=== PATIENT | male | born 1935 | race Caucasian/White ===

== ENCOUNTER 2022-02-16 14:42 | Inpatient (IN) | payer OTHER, MEDICARE ==
[~2022-02-16] VITALS: Ht 172.7 cm; Wt 83.0 kg
[2022-02-16 16:26] LABS: Hematocrit 45.6 % (37.0-53.0); Hemoglobin 15.4 g/dL (13.5-17.5)
[2022-02-16 16:33] LABS: Anti-Xa UFH, PHA Monitoring 0.69 IU/mL; Mean Platelet Volume 10.7 fL (9.1-12.4); Platelet Count 199 K/mm3 (150-400); Prothrombin Time Results 10.5 Sec (9.7-11.5)
[2022-02-16 16:57] LABS: Bun/Creatinine Ratio 21.6 (12.0-20.0); Calcium, Blood 10.1 mg/dL (8.5-10.1); Creatinine, Blood 0.93 mg/dL (0.60-1.20); Potassium, Blood 4.1 mmol/L (3.5-5.5); Thyroid Stimulating Hormone 1.83 uIU/mL (0.360-4.800)
--- NOTE | 2022-02-16 18:24 | NUR ---
END OF SHIFT SUMMARY: PATIENT IS ALERT AND ORIENTED, DENIES CHEST PAIN/PRESSURE OR SOB. PATIENT TO BE NPO AT MIDNIGHT, PATIENT IS ON 2L SPO2> 96%, WILL ATTEMPT RA BEFORE SHIFT CHANGE, WITH SPO2 MONITORING. LUNG SOUNDS IMPROVED FROM REPORT GIVEN BY [facility] IN [place]. PATIENT HAS BEEN PLEASANT COOPERATIVE WITH CARE. NO ACUTE SIGNS OF DISTRESS. BLOOD PRESSURE MILD ELEVATED, PROVIDER AWARE NO CONCERNS FROM THIS RN AT THIS TIME.
--- NOTE | 2022-02-17 06:08 | NUR ---
PT AWAKE FREQUENLTY THROUGHOUT SHIFT, CHIEF COMPLAINT HAS BEEN FEELING OF NEED TO VOID RELATED TO GALLO CATHETER PRESENCE. 600 ML URINE OUTPUT THIS SHIFT, BLADDER SCAN DONE AND REVEALS 15 ML. SATS HIGH 90S WITH OXYGEN VIA NASAL CANNULA AT 2 L/MIN, DECREASED TO 1 L/MIN AND PT HAS INTERMITTENTLY C/O FEELING MILD SHORTNESS OF BREATH WITH DECREASE IN OXYGEN FLOW, RETURNED TO 2 L/MIN THIS AM FOLLOWING TYLENOL ADMINISTRATION, WILL CONT TO MONITOR. DISCUSSED PT'S ABILITY TO MOVE SELF EARLY THIS SHIFT AND HE DEMONSTRATED THAT HE IS ABLE TO TURN SELF WELL IND, HAS TURNED SELF THROUGHOUT NOC WELL SCOOTING SELF UP IN BED IND. MAINTAINS SINUS RHYTHM, OCCASIONAL PVCS, PRESSURES MAINTAIN STABLE. PLAN IS FOR ANGIO TODAY.
[2022-02-17] MEDS ORDERED: LEVSOD25 PO (09:25)
[2022-02-17] MEDS ORDERED: METO25 PO (09:25)
[2022-02-17] MEDS ORDERED: Lovastatin20 MG PO (09:26)
--- NOTE | 2022-02-17 13:18 | NUR ---
UPDATE PT A&O X4. VSS. SPO2 > 92% ON 2L NC TITRATED TO 1L NC. PT REPORTS RA @ BASELINE. TELEMETRY SHOWING SR, HR 70s-80s. ECHO DONE IN THIS AM. HC W/ CALL STATING PT OKAY TO EAT TODAY & PLAN TO DO ANGIO TOMORROW @ 0900. PT DENIES CP. HEPARIN GTT CONTINUES TO INFUSE PER ORDERS. GALLO CATH PATENT & DRAINING TEA COLOR URINE. PT 1 PERSON ASSIST OOB. PT W/ WEAK AMBULATION.
--- NOTE | 2022-02-17 13:30 | NUR ---
Echocardiogram using 0.50ml of Definity contrast performed.
--- NOTE | 2022-02-17 18:15 | NUR ---
END OF SHIFT NOTE PT CONTINUES TO BE A&O X4. VSS. SPO2 > 92% ON 2L NC TITRATED TO 1L NC THEN RM. PT ANXIOUS, C/O "SOB" ON RA THOUGH SPO2 97% ON RA. 1L NC RE-APPLIED W/ PT THEN CALM. TELEMETRY SHOWING SR, HR 70s-80s. GALLO CATH PATENT & DRAINING TEA COLOR URINE. PT DENYING CP THIS SHIFT. HEPARIN GTT INFUSING PER ORDERS. PT TO BE NPO AFTER MIDNIGHT FOR ANGIO IN AM.
--- NOTE | 2022-02-18 00:15 | NUR ---
UPDATE PT STATED HIS WISHES TO LEAVE AMA. PT STATED HE WAS FRUSTRATED THAT HE DID NOT RECEIVE THE ANGIO ON 02/17/22 AND THAT HE "WOULD LIKE TO JUST GO HOME". PT PT INFORMED ABOUT POTENTIAL MEDICAL CONSEQUENCES TO HIS HEALTH IF HE LEAVES AMA. CHARGE NURSE VIOLETTE ALSO CAME AND SPOKE WITH THE PT ABOUT GOING AMA. AFTER DICUSSION WITH CHARGE NURSE, PT CHOSE TO STAY FOR THE ANGIO ON 02/18/22, BUT WOULD LIKE SOMETHING TO HIM SLEEP. MD SANCHEZFIED AND PT MEDICATED PER EMAR. MICHELLE, JO ANN
[2022-02-18 05:01] LABS: Hematocrit 44.3 % (37.0-53.0); Hemoglobin 14.6 g/dL (13.5-17.5); Mean Platelet Volume 10.9 fL (9.1-12.4); Platelet Count 172 K/mm3 (150-400)
--- NOTE | 2022-02-18 05:03 | NUR ---
SHIFT SUMMARY PT IS A/Ox4 AND FOLLOWS DIRECTIONS GIVEN BY STAFF. PT HAS NOT REPORTED ANY NEW ONSET OF CP OR PRESSURE T/O THE SHIFT. PT MAINTAINS SPO2 >95% ON RA WITH NO SOB OR DYSPNEA REPORTED AT REST. BP AND HR HAVE BEEN STABLE T/O THE SHIFT. HEPARIN RUNNING T/O THE SHIFT ORDERED PER EMAR. GALLO CATH IN PLACE DRAINING TEA/REDISH COLORED URINE, CATH PATENT AND DRAINING TO GRAVITY. AROUND 0005 THIS AM, PT EXRESSED INTENTIONS TO GO AMA, BUT LATER CHANGED HIS MIND AND CHOSE TO STAY. SEE THIS RN'S UPDAE NOTE FOR MORE DETAILS. PT UP TO CHAIR FOR COUPLE OF HOURS, THEN BACK TO BED TO SLEEP. VSS, NADN T/O THE SHIFT
--- NOTE | 2022-02-18 09:16 | NUR ---
GONE TO [employer] PT A&O X4. VSS. SPO2 > 92% ON RA. MONITOR SHOWING SR, HR 80s. PT DENYING CP/DISCOMFORT. CARDIZEM GTT INFUSING PER ORDERS UP UNTIL HC STAFF ARRIVAL TO TAKE PT TO [employer] FOR ANGIO. PT DEPARTED UNIT @ APPROX 0915 BY BED, ACCOMPANIED BY PT FAMILY.
--- NOTE | 2022-02-18 11:20 | NUR ---
RETURN FROM [facility] PT BACK TO [facility]- @ APPROX 1115. PT LAYING FLAT IN BED W/ L FEM ACCESS SITE W/ DRESSING C/D/I. SITE WNL W/ NO BLEEDING & NO HEMATOMA. W/ ORDER FOR PT BEDREST X6H. PT VSS. SPO2 > 92% ON RA. MONITOR SHOWING SR, HR 80s.
--- NOTE | 2022-02-18 18:08 | NUR ---
END OF SHIFT NOTE PT A&O X4 PRIOR TO ANGIO TODAY. PT DROWSY UPON RETURN FROM MANAGER ERP. PT THEN CONFUSED WHEN WAKING UP & CONVERSATING W/ STAFF. PT PULLING AT & REMOVING TELEMETRY & GOWN & REQUIRING FREQUENT REMINDERS TO REMAIN FLAT DURING POST ANGIO RECOVERY. PT CONFUSED, STATING LOCATION "IN MY BEDROOM @ HOME. MY IS IN THE OTHER ROOM & SHE WON'T LET ME IN." PT REORIENTED TO PLACE & REDIRECTED MULTIPLE TIMES. PT THEN W/ 2 VISITORS TO RM & PT THEN SUDDENLY ORIENTED TO PLACE, SITUATION & PROCEDURE THAT JUST OCCURRED, SHARING DETAILS W/ VISITORS IN RM. L FEM ACCESS SITE WNL W/ NO BLEEDING & NO HEMATOMA. PT VSS. SPO2 > 92% ON RA. MONITOR SHOWING SR, HR 80s. GALLO CATH DRAINING RED TINGED URINE. BED ALARM ON.
--- NOTE | 2022-02-19 05:17 | NUR ---
SHIFT SUMMARY: PT CONFUSED AND AGITATED AT BEGINNING OF SHIFT. STATED YEAR WAS "1944" AND WAS AT HOME WITH HIS . WHEN REDIRECTED, PT BECAME IRRITATED AND BEGAN TO TAKE TELE AND CLOTHES OFF. CALL PLACED TO MD, AND ORDERS RECIEVED, SEE EMAR. PT SLEPT ON AND OFF THE REST OF THE SHIFT. NO COMPLAINTS OF CP OR SOB THROUGHOUT THE NIGHT. GALLO CATH IN PLACE DRANING DARK RED URINE TO GRAVITY. NO BM. BP AND HR STABLE, AFEBRILE, PT ON RA SATING >95%. BED ALARM ON, BED IN LOW, CALL LIGHT IN REACH. WILL REPORT TO ONCOMING RN.
[2022-02-19] MEDS ORDERED: METO25ER PO (12:30)
[2022-02-19] MEDS ORDERED: ASPI81CH PO (12:31)
[2022-02-19] MEDS ORDERED: CLOP75 (12:31)
[2022-02-19] MEDS ORDERED: Amlodipine Bes2.5 MG PO (12:31)
[2022-02-19] MEDS ORDERED: CLOP75 PO (12:32)
--- NOTE | 2022-02-19 15:08 | NUR ---
DISCHARGE HOME PT SLEEPING HEAVILY THIS AM. PT WOKE BRIEFLY FOR AM ASSESSMENT/VSS, BUT WAS UNABLE TO REMAIN AWAKE. PT SLEPT HEAVILY UNTIL APPROX 1030 WHEN PT FAMILY ARRIVED TO & [facility] RN WOKE THE PT. PT A&O X4 UPON AWAKING. PT THEN ABLE TO TAKE AM MEDICATIONS W/ OUT DIFFICULTY. PT UNAWARE OF CONFUSION & EVENTS OVER NIGHT SUCH PULLING AT & REMOVING TELEMETRY & GOWN MULTIPLE TIMES. PT NOW CALM & COOPERATIVE W/ OUT CONFUSION. PT DENYING CP/DISCOMFORT OR ANY OTHER PAIN/DISCOMFORT. VSS. SPO2 > 92% ON RA. MONITOR SHOWING NSR. GALLO CATH REMOVED. DISCHARGE INSTRUCTIONS REVIEWED W/ PT & PT FAMILY. PIV REMOVED. PT TAKEN OUT BY WHEELCHAIR W/ BELONGINGS @ APPROX 1500.
== END 2022-02-19 15:10 | disposition home or self-care (01) | DRG 282 ==
LOC: PCU 14:42
PROVIDERS: ADMIT Internal Medicine
PROC: 4A023N7 Measurement of Cardiac Sampling and Pressure, Left Heart, Percutaneous Approach (ICD-10-PCS; principal; 2022-02-18)
PROC: B2111ZZ Fluoroscopy of Multiple Coronary Arteries using Low Osmolar Contrast (ICD-10-PCS; 2022-02-18)
PROC: B2181ZZ Fluoroscopy of Left Internal Mammary Bypass Graft using Low Osmolar Contrast (ICD-10-PCS; 2022-02-18)
PROC: B2121ZZ Fluoroscopy of Single Coronary Artery Bypass Graft using Low Osmolar Contrast (ICD-10-PCS; 2022-02-18)
DX: I21.4 Non-ST elevation (NSTEMI) myocardial infarction (principal); I48.91 Unspecified atrial fibrillation; E03.9 Hypothyroidism, unspecified; Z86.73 Personal history of transient ischemic attack (TIA), and cerebral infarction without residual deficits; Z95.1 Presence of aortocoronary bypass graft; Z95.5 Presence of coronary angioplasty implant and graft; Z90.49 Acquired absence of other specified parts of digestive tract; Z87.891 Personal history of nicotine dependence; I11.0 Hypertensive heart disease with heart failure; I50.9 Heart failure, unspecified; E78.5 Hyperlipidemia, unspecified; Z79.899 Other long term (current) drug therapy
CPT/HCPCS: 36415; 76937; 80048; 84443; 84484; 85014; 85018; 85049; 85520; 85610; 85730; 86850; 86900; 86901; 93005; 93010; 93455; 94760; 99152; 99153; A9270; C1760; C1769; C1894; C8929; J1644; J2250; J3010; J7030; J7040; Q9957; Q9967